=== PATIENT | male | born 1995 | race Two or more races ===

== ENCOUNTER 2023-02-16 07:50 | Emergency (ER) | payer MEDICAID ==
[~2023-02-16] VITALS: Ht 180.3 cm; Wt 88.0 kg
[2023-02-16 08:32] VITALS: BP 145/95
[2023-02-16] MEDS ORDERED: ACETAMINOPHEN 500 MG TAB PO ONE (08:45)
[2023-02-16 09:11] LABS: Basophils # (auto) 0 10 ^3/uL (0-0.2); Basophils % (auto) 0.5 % (0.0-2.0); Eosinophils # (auto) 0.3 10 ^3/uL (0-0.8); Eosinophils % (auto) 4.4 % (0.0-7.0); Hematocrit 43.4 % (41.0-53.0); Hemoglobin 14.3 g/dL (13.5-17.5); Lymphocytes # (auto) 2.2 10 ^3/uL (0.4-5.4); Lymphocytes % (auto) 35.9 % (10.0-50.0); Mean Corpuscular Hemoglobin 28.7 pg (28.0-32.0); Mean Corpuscular Volume 87.1 fL (80.0-100.0); Monocytes # (auto) 0.4 10 ^3/uL (0-1.3); Monocytes % (auto) 6.3 % (0.0-12.0); Neutrophils # (auto) 3.2 10 ^3/uL (1.6-8.6); Neutrophils % (auto) 52.9 % (37.0-80.0); Red Blood Cells 4.98 10^6/uL (4.5-5.90); Red Cell Distribution Width 12.7 % (11.8-14.3); White Blood Cell 6.1 10^3/uL (4.4-10.8)
[2023-02-16 09:25] LABS: Albumin 4.3 g/dL (3.4-5.0); Calcium 9.1 mg/dL (8.5-10.1)
[2023-02-16 09:30] LABS: BUN/Creatinine Ratio 9.9 (10.0-20.0); Bilirubin, Total 0.3 mg/dL (0.2-1.0); Total Protein 7.7 g/dL (6.4-8.2)
[2023-02-16 10:39] LABS: Hepatitis B Surface Antibody Positive (Negative)
[2023-02-16 12:32] LABS: Hepatitis A Ab IgM Negative
[2023-02-16 12:33] LABS: Hepatitis B Core IgM Negative
[2023-02-16] MEDS ORDERED: ACET-1079 PO (13:27)
== END 2023-02-16 13:34 | disposition home or self-care (01) ==
LOC: ER 07:50
DX: J02.9 Acute pharyngitis, unspecified (principal); B27.90 Infectious mononucleosis, unspecified without complication; Z20.5 Contact with and (suspected) exposure to viral hepatitis
CPT/HCPCS: 36415; 71045; 80053; 85025; 86664; 86703; 86704; 86705; 86706; 86709; 86803; 87070; 87340; 87880; 93005